=== PATIENT | male | born 1970 | race Caucasian/White ===

== ENCOUNTER 2019-12-07 17:21 | Emergency (ER) | payer OTHER, SELFPAY ==
[2019-12-07 17:22] VITALS: BP 163/93; PULSE 107; RESP 16; TEMP 36.4; O2SAT 98; BMI 29.6
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
[2019-12-07] MEDS: HYDROcodone Bitartrate/Apap 5/325 Tablet PO (17:45)
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
[2019-12-07 18:22] VITALS: RESP 18
[2019-12-07 18:46] VITALS: RESP 18
== END 2019-12-07 19:24 | disposition home or self-care (01) ==
LOC: ED 17:49
PROVIDERS: Emergency Provider Emergency Medicine; PCP Family Medicine
DX: S42.011A Anterior displaced fracture of sternal end of right clavicle, initial encounter for closed fracture (principal); S52.612A Displaced fracture of left ulna styloid process, initial encounter for closed fracture; V86.55XA Driver of 3- or 4- wheeled all-terrain vehicle (ATV) injured in nontraffic accident, initial encounter; Y93.I9 Activity, other involving external motion; Y92.9 Unspecified place or not applicable; Y99.8 Other external cause status
CPT/HCPCS: 71045; 73030; 73110; 99284

== ENCOUNTER 2019-12-20 09:36 | Day surgery (SDC) | payer OTHER, SELFPAY ==
[2019-12-20] VITALS (8 sets, daily range): BP systolic 114–137; BP diastolic 79–96; PULSE 67–90; RESP 16; TEMP 36–36.4; O2SAT 91–98; BMI 29.6
[2019-12-20 10:22] LABS: Prothrombin Time (Protime)PT. 12.8 SECONDS (11.7-14.9)
[2019-12-20 10:23] LABS: Partial Thromboplast Time 27.9 Seconds (24.1-36.2)
[2019-12-20] MEDS: Lactated Ringers 1,000 ML 100 ML IV (10:29)
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
[2019-12-20] MEDS: Cefazolin 2 GM in 0.9% Normal Saline 100 ML IV (11:29)
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
== END 2019-12-20 15:27 | disposition home or self-care (01) ==
LOC: SDC 09:41 → AC 09:42
PROVIDERS: Anesthesiology; PCP Family Medicine; Referring Provider Orthopaedic Surgery; Visit Provider Orthopaedic Surgery
PROC: (CPT 23515; principal; 2019-12-20 10:55)
DX: S42.021A Displaced fracture of shaft of right clavicle, initial encounter for closed fracture (principal); S52.612A Displaced fracture of left ulna styloid process, initial encounter for closed fracture; V86.99XA Unspecified occupant of other special all-terrain or other off-road motor vehicle injured in nontraffic accident, initial encounter; Y93.89 Activity, other specified; Y92.9 Unspecified place or not applicable; Y99.8 Other external cause status; I10 Essential (primary) hypertension; K21.9 Gastro-esophageal reflux disease without esophagitis; F17.210 Nicotine dependence, cigarettes, uncomplicated; E66.8 Other obesity; Z68.31 Body mass index [BMI] 31.0-31.9, adult; Z11.59 Encounter for screening for other viral diseases
CPT/HCPCS: 00450; 23515; 64415; 73000; 76000; 85610; 85730; 87635; C1713; C9803; J7120; J2405; U0003